=== PATIENT | female | born 1965 | race Caucasian/White ===

== ENCOUNTER → 2017-01-13 | Outpatient (CLI) | payer OTHER ==
[~2017-01-13] MED LIST: ALEVE 220MG220 MG; ALLEGRA 180MG180 MG PO; ASPIRIN 32325 MG/TAB PO; COZAAR 50MG50 MG/TAB PO; FLEXERIL 1010 MG/TAB PO; GLUCOSAMINE & C1 CA2 PO; GLUCOSAMINE/CHO1 TA2 PO; IBU800 M1 PO; LEVAQUIN 5500 MG/TAB PO; LOPRESSOR 225 MG/TAB; LOPRESSOR 225 MG/TAB PO; MAXIDE; MEDROL 4MG DOSPA4 MG PO; MOTRIN 800800 MG/TAB PO; MULTIVITAMIN1 TA1 PO; NORCO 325 MG-7.1 TAB PO; PERCOCET 325 MG1 TA2 PO; PLAVIX 75MG TAB75 MG PO; PREVACID 15MG15 M1 PO; PRINIVIL2.5 MG; PYRIDIUM 100MG100 MG PO; ULTRAM 50MG TAB50 MG PO; ZESTRIL 5MG5 MG PO; ZOCOR 40MG40 MG PO; ZYLOPRIM 100MG100 MG PO
== END ==
LOC: MC.RAD 11:40
DX: Z12.31 Encounter for screening mammogram for malignant neoplasm of breast (principal)

== ENCOUNTER → 2018-03-22 | Outpatient (CLI) | payer OTHER | LOC: MC.RAD 11:00 | DX: Z12.31 Encounter for screening mammogram for malignant neoplasm of breast (principal) ==

== ENCOUNTER → 2019-03-24 | Outpatient (CLI) | payer OTHER | LOC: MC.RAD 14:45 | DX: Z12.31 Encounter for screening mammogram for malignant neoplasm of breast (principal) ==

== ENCOUNTER → 2020-03-25 | Outpatient (CLI) | payer OTHER | LOC: MC.RAD 07:47 | DX: Z12.31 Encounter for screening mammogram for malignant neoplasm of breast (principal) ==

== ENCOUNTER → 2021-06-02 | Outpatient (CLI) | payer OTHER | LOC: MC.RAD 11:45 | DX: Z12.31 Encounter for screening mammogram for malignant neoplasm of breast (principal) ==

== ENCOUNTER → 2022-07-07 | Outpatient (CLI) | payer OTHER | LOC: MC.RAD 10:51 | DX: R92.1 Mammographic calcification found on diagnostic imaging of breast (principal); R92.8 Other abnormal and inconclusive findings on diagnostic imaging of breast ==

== ENCOUNTER → 2022-07-15 | Outpatient (CLI) | payer OTHER | LOC: MC.RAD 10:00 | DX: N64.89 Other specified disorders of breast (principal) ==

== ENCOUNTER → 2023-07-06 | Outpatient (CLI) | payer OTHER ==
[~2023-07-06] MED LIST changes: +ANTIVERT 25MG25 MG PO; +ASPIRIN 81M81 MG/TA2 PO; +BENADRYL25 M2 PO; +EPA FISH OIL1 SGL PO; +FISH OIL 500 M1 EAC1 PO; +FOLIC ACID 40400 MCG PO; +HCTZ 25MG TAB25 MG PO; +IRON TABLETS325 MG PO; +KRILL OIL 5001 EACH PO; +LIPITOR 80MG80 MG PO; +MAGNESIUM200 MG PO; +MOBIC15 MG PO; +NATURAL E400 IU PO; +NATURE'S BLE1000 MCG; +OMNICEF 300MG300 MG PO; +PRINIVIL40 MG PO; +TOPROL XL 25MG25 MG PO; +TYLENOL 8 HR PO; +VITAMIN B COMPL1 SGL PO; +VITAMIN C500 MG PO; +VITAMIN D31000 IU PO; +VIVLODEX5 MG PO
== END ==
LOC: MC.RAD 07:37
DX: Z12.31 Encounter for screening mammogram for malignant neoplasm of breast (principal); N64.89 Other specified disorders of breast

== ENCOUNTER → 2023-07-09 | Outpatient (CLI) | payer OTHER | LOC: MC.RAD 10:59 | DX: N63.20 Unspecified lump in the left breast, unspecified quadrant (principal) ==

== ENCOUNTER → 2024-02-25 | Outpatient (CLI) | payer OTHER | LOC: COL.RAD 10:28 | DX: E04.1 Nontoxic single thyroid nodule (principal) ==